=== PATIENT | female | born 1950 | race Caucasian/White ===

== ENCOUNTER → 2017-06-07 | Outpatient (CLI) | payer OTHER, MEDICAID | LOC: FIMAGING 15:38 | PROVIDERS: ATTEND Family Medicine | DX: Z12.31 Encounter for screening mammogram for malignant neoplasm of breast (principal) | CPT/HCPCS: G0202 ==

== ENCOUNTER → 2019-02-28 | Outpatient (CLI) | payer MEDICAID, OTHER | LOC: FIMAGING 09:59 | PROVIDERS: ATTEND Family Medicine | DX: Z12.31 Encounter for screening mammogram for malignant neoplasm of breast (principal) ==

== ENCOUNTER → 2019-02-28 | Outpatient (CLI) | payer OTHER | LOC: FIMAGING 10:33 | DX: R09.89 Other specified symptoms and signs involving the circulatory and respiratory systems (principal) ==